=== PATIENT | female | born 1965 | race Caucasian/White ===

== ENCOUNTER 2018-08-16 15:43 | Emergency (ER) | payer OTHER ==
[2018-08-16] MEDS ORDERED: Lidocaine 5% Patch TD STA (16:20)
--- NOTE | 2018-08-16 16:20 | C.PDOC ---
History Of Present Illness 52 year old female presents to ED with complaint of new onset right lower back pain for the past 2 weeks that has been worsening for several days. Patient also complains of occasional radiation of pain to the right hip. Patient states that the pain is worse when walking. Patient states that she has not taken any pain medication. Patient denies history of sciatica or chronic back pain. She denies trauma, dysuria, hematuria, fever, or chills. NEW ONSET R LOWER BACK PAIN X 2 WEEKS, WORSENING X SEV DAYS. OCC RADIATION R HIP. WORSE WHEN WALKING. NO PAIN MEDS TRIED. NO TRAUMA. DENIES HO SCIATICA OR CHRONIC BACK PAIN. NO UTI SX EXAM MOD DIST NONTOXIC BACK NO CVAT +PAIN W FLEXION. +DIFFUSE SPASM R LOWER BACK W LOCAL TEND. NO LS TEND NEURO NO FOCAL DEF ABD NEG MDM NEW ONSET BACK PAIN PROBABLE SCIATICA. PAIN RX, UA Time Seen by Provider: 08/16/18 16:11 Chief Complaint (Nursing): Back Pain History Per: Patient History/Exam Limitations: no limitations Onset/Duration Of Symptoms: Other (2 weeks) Current Symptoms Are (Timing): Worse Quality Of Discomfort: "Pain" Previous Symptoms: None Associated Symptoms: denies: Incontinence, New Weakness, New Numbness Exacerbating Factor(s): Other (walking) Past Medical History Reviewed: Historical Data, Nursing Documentation, Vital Signs Primary Care Provider: Diane Willingham - Medical History PMH: HTN Denies: Back Problems Surgical History: No Surg Hx Family History: States: Unknown Family Hx - Social History Hx Alcohol Use: Yes Hx Substance Use: No - Immunization History Hx Tetanus Toxoid Vaccination: No Hx Influenza Vaccination: No Hx Pneumococcal Vaccination: No Review Of Systems Except As Marked, All Systems Reviewed And Found Negative. Musculoskeletal: Positive for: Back Pain (right lower back), Other (right hip pain) Physical Exam - Physical Exam Appears: Non-toxic, Other (moderate distress) Skin: Normal Color, Warm, Dry Head: Atraumatic, Normacephalic Eye(s): bilateral: Normal Inspection Neck: Normal ROM, No Midline Cervical Tenderness, No Paracervical Tenderness, Supple Chest: Symmetrical, No Deformity, No Tenderness Cardiovascular: Rhythm Regular, No Murmur Respiratory: No Accessory Muscle Use, No Rales, No Rhonchi, No Wheezing Gastrointestinal/Abdominal: Soft, No Tenderness Back: No CVA Tenderness, No Vertebral Tenderness, Muscle Spasm (diffuse spasm to the right lower back with localized tenderness), No Paraspinal Tenderness (lumbar spine), Other (+ pain with flexion) Extremity: Capillary Refill (<2 seconds) Extremity: Bilateral: Atraumatic, Normal Color And Temperature, Normal ROM Pulses: Left Radial: Normal, Right Radial: Normal, Left Dorsalis Pedis: Normal, Right Dorsalis Pedis: Normal Neurological/Psych: Oriented x3, Normal Speech, Normal Cognition, Normal Cranial Nerves, Normal Motor, Normal Sensation, Normal Reflexes Gait: Steady ED Course And Treatment Progress Note: Glucose POC and UA ordered for patient. Patient given Decadron PO, lidoderm, gabapentin, toradol, tylenol PO, and valium PO . Reevaluation Time: 17:54 Reassessment Condition: Improved (IMPROVED ROM, PS FEELS BETTER. ADVISED FU PMD, TAKE MEDS PRESCRIBED) Medical Decision Making Medical Decision Making: MDM: New onset back pain probable sciatica. Patient given pain medication and UA ordered. Disposition Counseled Patient/Family Regarding: Studies Performed, Diagnosis, Need For Followup, Rx Given - Disposition Referrals: YOUR,PMD [Other] Disposition: HOME/ ROUTINE Disposition Time: 17:55 Condition: IMPROVED Prescriptions: Acetaminophen [Tylenol Extra Strength] 2 tab PO Q6 #30 tablet Cyclobenzaprine [Flexeril] 10 mg PO TID #15 tab Gabapentin [Neurontin] 300 mg PO TID #30 cap Ibuprofen [Motrin] 600 mg PO Q6 #30 tab Instructions: Low Back Pain (DC) Forms: [facility] ([place]), Work Excuse - Clinical Impression Clinical Impression: Low back pain - Scribe Statement The provider has reviewed the documentation as recorded by the Scribe (Sylvie Tobin) All medical record entries made by the Scribe were at my direction and personally dictated by me. I have reviewed the chart and agree that the record accurately reflects my personal performance of the history, physical exam, medical decision making, and the department course for this patient. I have also personally directed, reviewed, and agree with the discharge instructions and disposition.
[2018-08-16 16:29] VITALS: RESP 18; TEMP 98.1; O2SAT 96
[2018-08-16 16:39] LABS: SQUAMOUS EPITHIAL 1 /hpf (0-5); URINE BACTERIA OCC (<OCC); URINE BILIRUBIN NEGATIVE (NEGATIVE); URINE BLOOD NEGATIVE (NEGATIVE); URINE CALCIUM OXALATE CRYSTALS MOD /hpf (<OCC); URINE CLARITY Hazy (Clear); URINE COLOR Yellow (YELLOW); URINE GLUCOSE (UA) NORMAL (Normal); URINE LEUKOCYTE ESTERASE TRACE Leu/uL (Negative); URINE PROTEIN NEGATIVE (NEGATIVE)
[2018-08-16] MEDS ORDERED: Lidocaine 5% Patch TD ONE (16:42)
[2018-08-16 17:46] VITALS: BP 115/70; PULSE 60
== END 2018-08-16 18:13 | disposition home or self-care (01) ==
LOC: C.ER 15:43
DX: M54.5 Low back pain (principal)
CPT/HCPCS: 81001; 82948; 96372; 99284; J1885; J8540